=== PATIENT | male | born 1950 | race Caucasian/White ===

== ENCOUNTER 2025-06-28 01:17 | Inpatient (IN) ==
[2025-06-28 01:45] LABS: VBG HCO3 24.1 mmol/L (24.0-28.0); VBG PCO2 43.7 mmHg (41.0-51.0); VBG PH 7.36 U (7.32-7.42); VBG PO2 51.8 mmHg (25.0-40.0)
[2025-06-28 01:50] LABS: Basophils # (Auto) 0.01 K/mcL (0.00-0.30); Basophils % (Auto) 0 % (0.0-2.0); Eosinophils # (Auto) 0.01 K/mcL (0.00-0.70); Eosinophils % (Auto) 0 % (0.0-7.0); Hematocrit 44.7 % (40.1-51.0); Hemoglobin 15.5 g/dL (13.7-17.5); Lymphocytes # (Auto) 2.60 K/mcL (1.50-4.80); Lymphocytes % (Auto) 11.8 % (15.5-49.0); Mean Corpuscular HGB Conc 34.7 g/dL (31.0-36.0); Monocytes # (Auto) 0.90 K/mcL (0.10-0.90); Monocytes % (Auto) 4.1 % (1.0-12.0); Neutrophils % (Auto) 83.8 % (38.0-78.0); Platelet Count 286 K/mcL (140-440); RBC 4.71 M/mcL (4.63-6.08); WBC 22.1 K/mcL (4.5-11.0)
[2025-06-28 01:52] LABS: INR 1.1 (0.9-1.1); Prothrombin Time 15.3 sec (11.9-14.5)
[2025-06-28] MEDS: LACTATED RINGERS 1,000 ML IV ONE ×2 (01:52→03:57)
[2025-06-28] MEDS: IPRATROPIUM/ALBUTEROL 3 ML AMPUL.NEB NEB ONE (01:57)
[2025-06-28] MEDS: cefTRIAXone 2 GM in DEXTROSE 5% IN WATER 50 ML IV ONE (02:08)
[2025-06-28] MEDS: ONDANSETRON 4 MG/2 ML VIAL IV ONE (02:12)
[2025-06-28 02:22] LABS: Thyroid Stimulating Hormone 5.62 uIU/mL (0.27-5.01)
[2025-06-28 02:35] LABS: ALT/SGPT 33 U/L (<40); AST/SGOT 32 U/L (<40); Albumin 3.9 gm/dL (3.2-5.2); Albumin/Globulin Ratio 1.2 (1.0-2.3); Alkaline Phosphatase 94 U/L (39-117); Anion Gap 21.0 (8.0-16.0); Bilirubin,Total 0.8 mg/dL (0.1-1.0); Blood Urea Nitrogen 13 mg/dL (8-23); CRP,High Sensitivity 57.8 mg/L (1.0-3.0); Calcium 8.9 mg/dL (8.6-10.4); Carbon Dioxide 21 mmol/L (22-30); Chloride 98 mmol/L (96-108); Globulin 3.3 gm/dL (2.2-3.7); Glucose 191 mg/dL (70-105); Potassium 2.6 mmol/L (3.3-5.1); Sodium 140 mmol/L (133-145)
[2025-06-28] MEDS: AZITHROMYCIN 500 MG in DEXTROSE 5% IN WATER 250 ML IV ONE (02:40)
[2025-06-28] MEDS: POTASSIUM CHLORIDE 20 MEQ in DEXTROSE 5% IN WATER 250 ML IV ONE (03:11)
[2025-06-28 04:33] LABS: Bilirubin,Urine NEGATIVE (Negative); Color,Urine LT. YELLOW; Glucose,Urine (UA) NEGATIVE (Negative); Ketones,Urine NEGATIVE (Negative); Leukocyte Esterase,Urine NEGATIVE /uL (Negative); Mucus,Urine Few /hpf; PH,Urine 6.0 (5.0-9.0); Protein,Urine TRACE mg/dL (Negative); Specific Gravity,Urine 1.015 (1.000-1.035); Urobilinogen,Urine 0.2 mg/dL
[2025-06-28] MEDS ORDERED: IPRATROPIUM/ALBUTEROL 3 ML AMPUL.NEB NEB PRN (08:04)
[2025-06-28] MEDS ORDERED: DEXTROSE 50% 50 ML VIAL IV PRN (08:04)
[2025-06-28] MEDS ORDERED: ACETAMINOPHEN 325 MG TABLET PO PRN (08:04)
[2025-06-28] MEDS ORDERED: LACTULOSE 20 GM/30 ML ORAL.SOL PO PRN (08:04)
[2025-06-28] MEDS ORDERED: DEXTROSE 31 GM ORAL.SUSP PO PRN (08:04)
[2025-06-28] MEDS ORDERED: ONDANSETRON 4 MG/2 ML VIAL IV PRN (08:04)
[2025-06-28] MEDS ORDERED: NITROGLYCERIN 0.4 MG TAB.SUBL SL PRN (08:04)
[2025-06-28] MEDS ORDERED: SENNOSIDES 1 TABLET PO PRN (08:04)
[2025-06-28] MEDS ORDERED: guaiFENesin/DEXTROMETHORPHAN 5ML UD CUP PO PRN (08:07)
[2025-06-28] MEDS ORDERED: ALBUTEROL SULFATE 60 PUFF INHALER INH PRN (08:13)
[2025-06-28] MEDS: 0.9 % SODIUM CHLORIDE 1,000 ML IV SCH (08:46)
[2025-06-28] MEDS ORDERED: LEVOTHYROXINE SODIUM 175 MCG TABLET PO SCH (09:00)
[2025-06-28] MEDS: ENOXAPARIN 40 MG/0.4 ML SYRINGE SQ SCH (09:08)
[2025-06-28] MEDS: DOCUSATE SODIUM 100 MG CAPSULE PO SCH (09:08)
[2025-06-28] MEDS: FERROUS SULFATE 325 MG TABLET PO SCH (09:08)
[2025-06-28] MEDS: CALCIUM W/VIT D3 500 MG TABLET PO SCH (09:08)
[2025-06-28] MEDS: PIPERACILLIN SODIUM/TAZOBACTAM 3.375 GM in DEXTROSE 5% IN WATER 50 ML IV ONE (09:09)
[2025-06-28] MEDS: NACL 0.9% W/KCL 20MEQ 1,000 ML IV SCH (09:10)
[2025-06-28] MEDS: FLUTICASONE/SALMETEROL 250/50 INHALER #14 INH SCH (09:10)
[2025-06-28] MEDS ORDERED: IOPAMIDOL 100 ML BOTTLE IV ONE (11:27)
[2025-06-28] MEDS: PIPERACILLIN SODIUM/TAZOBACTAM 3.375 GM in DEXTROSE 5% IN WATER 100 ML IV SCH (14:32)
[2025-06-28] MEDS: INSULIN LISPRO 1 UNIT/0.01 ML UNIT SQ SCH (14:32)
[2025-06-28] MEDS: 0.9 % SODIUM CHLORIDE 10 ML SYRINGE IV SCH (14:33)
[2025-06-28] MEDS: METOCLOPRAMIDE 10 MG TABLET PO SCH (16:35)
[2025-06-28] MEDS: POTASSIUM CHLORIDE 20 MEQ TABLET PO SCH (16:35)
[2025-06-28] MEDS: OMEPRAZOLE 20 MG CAPSULE PO SCH (16:35)
[2025-06-28] MEDS: ATORVASTATIN 20 MG TABLET PO SCH (21:29)
[2025-06-29 07:15] LABS: Phosphorous 2.4 mg/dL (2.5-4.5)
[2025-06-29 07:21] LABS: ALT/SGPT 22 U/L (<40); AST/SGOT 23 U/L (<40); Albumin 3.0 gm/dL (3.2-5.2); Albumin/Globulin Ratio 1.0 (1.0-2.3); Alkaline Phosphatase 61 U/L (39-117); Anion Gap 13.0 (8.0-16.0); Bilirubin,Total 0.5 mg/dL (0.1-1.0); Blood Urea Nitrogen 20 mg/dL (8-23); Calcium 8.0 mg/dL (8.6-10.4); Carbon Dioxide 23 mmol/L (22-30); Chloride 102 mmol/L (96-108); Globulin 2.9 gm/dL (2.2-3.7); Glucose 218 mg/dL (70-105); Potassium 3.1 mmol/L (3.3-5.1); Sodium 138 mmol/L (133-145)
[2025-06-29] MEDS ORDERED: LEVOTHYROXINE 25 MCG TABLET PO SCH (07:30)
[2025-06-29] MEDS ORDERED: LEVOTHYROXINE 150 MCG TABLET PO SCH (07:30)
[2025-06-29] MEDS: LEVOTHYROXINE 100 MCG TABLET PO SCH (07:33)
[2025-06-29 07:53] LABS: Basophils # (Auto) 0.03 K/mcL (0.00-0.30); Basophils % (Auto) 0.1 % (0.0-2.0); Eosinophils # (Auto) 0 K/mcL (0.00-0.70); Eosinophils % (Auto) 0 % (0.0-7.0); Hematocrit 33.3 % (40.1-51.0); Hemoglobin 11.8 g/dL (13.7-17.5); Lymphocytes # (Auto) 1.16 K/mcL (1.50-4.80); Lymphocytes % (Auto) 5.2 % (15.5-49.0); Mean Corpuscular HGB Conc 35.4 g/dL (31.0-36.0); Monocytes # (Auto) 0.44 K/mcL (0.10-0.90); Monocytes % (Auto) 2.0 % (1.0-12.0); Neutrophils % (Auto) 92.2 % (38.0-78.0); RBC 3.54 M/mcL (4.63-6.08); WBC 22.5 K/mcL (4.5-11.0)
[2025-06-29 07:56] LABS: Estimated Average Glucose(eAG) 151 mg/dL; Hemoglobin A1C 6.9 % Hgb (4.0-6.0)
[2025-06-30 06:31] LABS: Phosphorous 1.9 mg/dL (2.5-4.5)
[2025-06-30 06:32] LABS: ALT/SGPT 24 U/L (<40); AST/SGOT 19 U/L (<40); Albumin 3.3 gm/dL (3.2-5.2); Albumin/Globulin Ratio 1.1 (1.0-2.3); Alkaline Phosphatase 66 U/L (39-117); Anion Gap 10.0 (8.0-16.0); Bilirubin,Total 0.4 mg/dL (0.1-1.0); Blood Urea Nitrogen 20 mg/dL (8-23); Calcium 8.3 mg/dL (8.6-10.4); Carbon Dioxide 23 mmol/L (22-30); Chloride 104 mmol/L (96-108); Globulin 2.9 gm/dL (2.2-3.7); Glucose 288 mg/dL (70-105); Potassium 3.6 mmol/L (3.3-5.1); Sodium 137 mmol/L (133-145)
[2025-06-30 06:33] LABS: Basophils # (Auto) 0.01 K/mcL (0.00-0.30); Basophils % (Auto) 0.1 % (0.0-2.0); Eosinophils # (Auto) 0 K/mcL (0.00-0.70); Eosinophils % (Auto) 0 % (0.0-7.0); Hematocrit 35.1 % (40.1-51.0); Hemoglobin 12.0 g/dL (13.7-17.5); Lymphocytes # (Auto) 0.82 K/mcL (1.50-4.80); Lymphocytes % (Auto) 4.6 % (15.5-49.0); Mean Corpuscular HGB Conc 34.2 g/dL (31.0-36.0); Monocytes # (Auto) 0.43 K/mcL (0.10-0.90); Monocytes % (Auto) 2.4 % (1.0-12.0); Neutrophils % (Auto) 92.5 % (38.0-78.0); Platelet Count 220 K/mcL (140-440); RBC 3.61 M/mcL (4.63-6.08); WBC 17.8 K/mcL (4.5-11.0)
== END 2025-06-30 10:35 | disposition home or self-care (01) | DRG 871 ==
LOC: ED 01:17 → ICU 07:15
PROVIDERS: ADMIT Internal Medicine; ATTEND Internal Medicine